=== PATIENT | male | born 1980 | race Caucasian/White ===

== ENCOUNTER → 2017-11-01 | Outpatient (CLI) | payer BC ==
[~2017-11-01] MED LIST: ANUSOL-HC25 MG RC; BACTRIM DS 8001 TA1 PO; BACTROBAN CREAM15 GM T; CEPHALEXIN500 M1 PO; CLARITIN10 MG PO; HYDROCODONE BIT1 T11 PO; MEDROL DOSEPAK4 MG PO; SEPTRA DS 800 M1 TAB PO; VICODIN 500 MG-1 TAB PO
[2017-11-01 09:02] LABS: HEMOGLOBIN 15.8 g/dl (14.0-18.0); MEAN CELL VOLUME 86.4 fl (80.0-94.0); MEAN CORPUSCULAR HGB CONC 33.6 g/dl (33.0-37.0); MEAN PLATELET VOLUME 10.9 fl (9.6-12.3); RED BLOOD COUNT 5.44 10*6/uL (4.50-5.90); RED CELL DISTRI WIDTH 12.4 % (0-14.5); WHITE BLOOD COUNT 6.5 10*3/uL (4.8-10.8)
[2017-11-01 09:12] LABS: ALBUMIN 3.7 gm/dl (3.1-4.5); BUN 16 mg/dl (7-24); CHLORIDE 107 mmol/L (98-107); CHOLESTEROL 177 mg/dL (<200); CREATININE 0.99 mg/dL (0.70-1.30); POTASSIUM 4.2 mmol/L (3.5-5.1); SGOT/AST 28 IU/L (3-35); SGPT/ALT 62 U/L (12-78); SODIUM 143 mmol/L (136-145); TRIGLYCERIDES 207 mg/dl (<150); VLDL CHOLESTEROL 41 mg/dL (6-40)
[2017-11-01 09:14] LABS: ALKALINE PHOSPHATASE 54 U/L (45-117); HDL CHOLESTEROL 35 mg/dl (40-60); LDL CHOLESTEROL 101 mg/dL (9-159); TOTAL PROTEIN 6.9 gm/dL (6.4-8.2)
== END | disposition home or self-care (01) ==
LOC: LAB 08:07
PROVIDERS: Family Medicine
DX: E78.00 Pure hypercholesterolemia, unspecified (principal); E55.9 Vitamin D deficiency, unspecified; L03.90 Cellulitis, unspecified

== ENCOUNTER → 2019-03-21 | Outpatient (CLI) | payer BC | END | disposition home or self-care (01) | LOC: RAD 11:30 | DX: M54.5 Low back pain (principal) ==

== ENCOUNTER → 2019-07-05 | Day surgery (SDC) | payer BC ==
[~2019-07-05] VITALS: Ht 190.5 cm; Wt 113.4 kg
[~2019-07-05] MED LIST changes: +NORCO 5-325 TA1 EACH PO
[2019-07-05 10:00] VITALS: BP 120/64
[2019-07-05 10:53] VITALS: BP 99/51
[2019-07-05 10:58] VITALS: BP 115/75
[2019-07-05 11:02] VITALS: BP 110/71
[2019-07-05 11:05] VITALS: BP 115/68
[2019-07-05 11:08] VITALS: BP 111/66
== END | disposition home or self-care (01) ==
LOC: SDC 07-03 13:15
DX: L72.0 Epidermal cyst (principal); L72.11 Pilar cyst; Z82.49 Family history of ischemic heart disease and other diseases of the circulatory system

== ENCOUNTER 2019-08-30 19:31 | Emergency (ER) | payer BC ==
[~2019-08-30] VITALS: Ht 190.5 cm; Wt 117.9 kg
[2019-08-30] MEDS ORDERED: ALLEGRA-D 24 H1 EACH PO (20:13)
[2019-08-30] MEDS ORDERED: GOOD NEIGHBOR M25 M1 PO (20:13)
== END 2019-08-30 20:02 | disposition home or self-care (01) ==
LOC: ED 19:31
DX: H81.12 Benign paroxysmal vertigo, left ear (principal); F17.200 Nicotine dependence, unspecified, uncomplicated

== ENCOUNTER → 2020-02-04 | Outpatient (CLI) | payer BC ==
[~2020-02-04] MED LIST changes: +ALLEGRA-D 24 H1 EACH PO; +GOOD NEIGHBOR M25 M1 PO
== END | disposition home or self-care (01) ==
LOC: COVID19 11:12
PROVIDERS: ATTEND Family Medicine
DX: U07.1 COVID-19 (principal)

== ENCOUNTER 2021-06-05 10:20 | Emergency (ER) | payer BC ==
[2021-06-05] MEDS ORDERED: IBU800 M2 PO (10:41)
== END 2021-06-05 11:18 | disposition home or self-care (01) ==
LOC: ED 10:20
DX: S29.011A Strain of muscle and tendon of front wall of thorax, initial encounter (principal); Z79.899 Other long term (current) drug therapy; X50.1XXA Overexertion from prolonged static or awkward postures, initial encounter; Y93.89 Activity, other specified; Y92.89 Other specified places as the place of occurrence of the external cause; Y99.9 Unspecified external cause status

== ENCOUNTER → 2023-05-09 | Outpatient (CLI) | payer BC ==
[~2023-05-09] MED LIST changes: +IBU800 M2 PO
[2023-05-09 14:16] LABS: HEMATOCRIT 58.9 % (42.0-52.0); MEAN CELL VOLUME 87.9 fl (80.0-94.0); MEAN CORPUSCULAR HGB 29.1 pg (27.0-31.0); MEAN CORPUSCULAR HGB CONC 33.1 g/dl (33.0-37.0); MEAN PLATELET VOLUME 10.3 fl (9.6-12.3); RED BLOOD COUNT 6.7 10*6/uL (4.50-5.90); RED CELL DISTRI WIDTH 12.7 % (0-14.5)
[2023-05-09 14:39] LABS: ALKALINE PHOSPHATASE 59 U/L (46-116); BUN 15 mg/dl (9-23); CHLORIDE 103 mmol/L (98-107); CHOLESTEROL 174 mg/dL (<200); LDL CHOLESTEROL 100 mg/dL (9-159); POTASSIUM 4.4 mmol/L (3.4-5.1); SGPT/ALT 38 U/L (5-49); TOTAL PROTEIN 7.6 gm/dL (6.0-8.0); TRIGLYCERIDES 164 mg/dl (<150)
[2023-05-09 14:42] LABS: VITAMIN D, 25-HYDROXY 29.9 ng/mL (30-100)
[2023-05-11 21:06] LABS: TESTOSTERONE FREE, (DIRECT) 19.9 pg/mL (6.8-21.5)
== END | disposition home or self-care (01) ==
LOC: LAB 13:51
PROVIDERS: ATTEND Family Medicine
DX: R07.9 Chest pain, unspecified (principal); E55.9 Vitamin D deficiency, unspecified; E78.00 Pure hypercholesterolemia, unspecified